=== PATIENT | male | born 1945 | race American Indian/Alaskan Native ===

== ENCOUNTER 2021-02-03 12:27 | Emergency (ER) | payer MEDICARE ==
[2021-02-03 13:40] VITALS: BP 131/83
--- NOTE | 2021-02-03 16:30 | Emergency Department Report ---
ED Extremity Problem HPI - General Chief complaint: Extremity Problem,Nontraumatic Stated complaint: RT LEG PAIN Time Seen by Provider: 02/03/21 14:35 Source: patient Mode of arrival: Ambulatory Limitations: No Limitations - History of Present Illness Initial comments: 75-year-old male with a past medical history of hypertension hyperlipidemia presents to the ER today with complaints of right calf pain. Patient states that his symptoms started this past Wednesday. He describes it as a constant throbbing pain. He denies any injury. He denies any strenuous activity. Patient describes it as a crampy but sometimes stiff pain. He states that it hurts when he stands, and when he walks but more so when he is laying down and resting. The redness or bruising to the leg. He denies any swelling. He denies any associated chest pain or shortness of breath. He denies any prior history of DVT or PE. MD Complaint: extremity pain -: Gradual - Related Data Home Medications Medication Instructions Recorded Confirmed Last Taken lisinopriL [Zestril TAB] 20 mg PO QDAY 10/04/14 01/31/16 10/04/14 Aspirin [Aspirin BABY CHEW TAB] 81 mg PO QDAY 01/31/16 Unknown Pentoxifylline [TRENtal] 400 mg PO BID 01/31/16 Unknown Simvastatin (NF) [Zocor TAB] 40 mg PO QHS 01/31/16 Unknown Triamter/Hctz 75-50 mg (Nf) 1 tab PO QDAY 01/31/16 Unknown [Maxzide 75-50 mg] amLODIPine [Norvasc] 5 mg PO DAILY 01/31/16 Unknown Previous Rx's Medication Instructions Recorded Last Taken Type Diclofenac 1% [Diclofenac 1% 1 applic TP QID PRN 1 Days #1 tube 02/03/21 Unknown Rx topical gel] methOCARBAMOL [Robaxin TAB] 500 mg PO Q8H PRN #30 tablet 02/03/21 Unknown Rx Allergies Allergy/AdvReac Type Severity Reaction Status Date / Time No Known Allergies Allergy Unverified 10/04/14 16:56 ED Review of Systems ROS: Stated complaint: RT LEG PAIN Other details as noted in HPI Comment: All other systems reviewed and negative Constitutional: denies: chills, diaphoresis, fever, malaise, weakness Eyes: denies: eye pain, eye discharge, vision change ENT: denies: ear pain, throat pain, dental pain, hearing loss, epistaxis Respiratory: denies: cough, shortness of breath, wheezing Cardiovascular: denies: chest pain, palpitations, dyspnea on exertion, orthopnea, edema, syncope, paroxysmal nocturnal dyspnea Endocrine: no symptoms reported Gastrointestinal: denies: abdominal pain, nausea, diarrhea, constipation, hematemesis Genitourinary: denies: urgency, dysuria, frequency, hematuria, discharge Musculoskeletal: arthralgia, myalgia. denies: back pain, joint swelling Skin: denies: rash, lesions Neurological: denies: headache, weakness, numbness, paresthesias, confusion, abnormal gait Psychiatric: denies: anxiety, depression Hematological/Lymphatic: denies: easy bleeding, easy bruising, swollen glands ED Past Medical Hx - Past Medical History Previous Medical History?: Yes Hx Hypertension: Yes Hx Heart Attack/AMI: No Hx GERD: Yes Hx Sickle Cell Disease: No Hx Arthritis: Yes Hx HIV: No Additional medical history: inguinal hernia - Surgical History Past Surgical History?: No - Social History Smoking Status: Never Smoker Substance Use Type: None - Medications Home Medications: Home Medications Medication Instructions Recorded Confirmed Last Taken Type lisinopriL [Zestril TAB] 20 mg PO QDAY 10/04/14 01/31/16 10/04/14 History Aspirin [Aspirin BABY CHEW TAB] 81 mg PO QDAY 01/31/16 Unknown History Pentoxifylline [TRENtal] 400 mg PO BID 01/31/16 Unknown History Simvastatin (NF) [Zocor TAB] 40 mg PO QHS 01/31/16 Unknown History Triamter/Hctz 75-50 mg (Nf) 1 tab PO QDAY 01/31/16 Unknown History [Maxzide 75-50 mg] amLODIPine [Norvasc] 5 mg PO DAILY 01/31/16 Unknown History Diclofenac 1% [Diclofenac 1% 1 applic TP QID PRN 1 Days #1 tube 02/03/21 Unknown Rx topical gel] methOCARBAMOL [Robaxin TAB] 500 mg PO Q8H PRN #30 tablet 02/03/21 Unknown Rx ED Physical Exam - General Limitations: No Limitations General appearance: alert, in no apparent distress - Head Head exam: Present: atraumatic, normocephalic, normal inspection - Eye Eye exam: Present: normal appearance, PERRL, EOMI Pupils: Present: normal accommodation - Neck Neck exam: Present: normal inspection, full ROM - Respiratory Respiratory exam: Present: normal lung sounds bilaterally. Absent: respiratory distress - Cardiovascular Cardiovascular Exam: Present: regular rate, normal rhythm, normal heart sounds - GI/Abdominal GI/Abdominal exam: Present: soft. Absent: distended, tenderness, guarding - Expanded Lower Extremity Exam Right Lower Leg exam: Present: full ROM, tenderness (right calf), swelling (mild non pitting edema noted right le). Absent: abrasion, laceration, ecchymosis, deformity, crepidus, dislocation, erythema, palpable cord Neuro vascular tendon exam: Present: no vascular compromise. Absent: pulse deficit, abnormal cap refill, motor deficit, sensory deficit, tendon deficit Gait: Positive: observed and normal - Neurological Exam Neurological exam: Present: alert, oriented X3, CN II-XII intact, normal gait - Psychiatric Psychiatric exam: Present: normal affect, normal mood - Skin Skin exam: Present: intact ED Course Vital Signs 02/03/21 13:28 Temperature 98.4 F Pulse Rate 79 Respiratory 18 Rate Blood Pressure 131/83 O2 Sat by Pulse 96 Oximetry ED Medical Decision Making - Radiology Data Radiology results: report reviewed Critical care attestation.: If time is entered above; I have spent that time in minutes in the direct care of this critically ill patient, excluding procedure time. ED Disposition Clinical Impression: Right calf pain Disposition: DC-01 TO HOME OR SELFCARE Is pt being admited?: No Does the pt Need Aspirin: No Condition: Stable Instructions: Leg Cramps Additional Instructions: Take the muscle relaxer and use the Voltaren rub as prescribed. Follow-up closely with your primary care doctor this week especially if your symptoms continues but if it worsens in any way or you develop associated shortness of breath and chest pain with that return to the ER immediately. Prescriptions: Diclofenac 1% [Diclofenac 1% topical gel] 1 applic TP QID PRN 1 Days #1 tube PRN Reason: pain methOCARBAMOL [Robaxin TAB] 500 mg PO Q8H PRN #30 tablet PRN Reason: Muscle Spasm Referrals: PRIMARY CARE, [Primary Care Provider] - 3-5 Days Time of Disposition: 19:26
--- NOTE | 2021-02-03 19:01 | Vascular Lab Report ---
DUPLEX DOPPLER LOWER EXTREMITY VEINS, RIGHT INDICATION / CLINICAL INFORMATION: calf pain. TECHNIQUE: Duplex doppler imaging was performed through the veins of the right lower extremity using venous comp ression and other maneuvers. COMPARISON: None available. FINDINGS: RIGHT COMMON FEMORAL VEIN: Negative. RIGHT FEMORAL VEIN: Negative. RIGHT POPLITEAL VEIN: Negative. RIGHT CALF VEINS: Negative. ADDITIONAL FINDINGS: None. IMPRESSION: 1. No sonographic evidence for DVT in the right lower extremity. Signer Name: Daniel Sevilla MD Signed: 02/03/2021 6:57 PM Workstation Name: [email or web address]
== END 2021-02-03 19:25 | disposition home or self-care (01) ==
LOC: ED 12:27
DX: M79.661 Pain in right lower leg (principal); I10 Essential (primary) hypertension; K21.9 Gastro-esophageal reflux disease without esophagitis; M19.90 Unspecified osteoarthritis, unspecified site; Z79.899 Other long term (current) drug therapy